=== PATIENT | female | born 2005 | race African-American/Black ===

== ENCOUNTER 2024-11-08 10:50 | Outpatient (RCR) | payer OTHER, SELFPAY ==
[2024-11-08] MEDS: RHO(D) IMMUNE GLOBULIN 300 MCG/2 ML SYRINGE IM (12:20)
== END 2025-02-06 23:59 | disposition home or self-care (01) ==
LOC: ANHOBOP 10:50
DX: Z29.13 Encounter for prophylactic Rho(D) immune globulin (principal); O36.0190 Maternal care for anti-D [Rh] antibodies, unspecified trimester, not applicable or unspecified; Z3A.00 Weeks of gestation of pregnancy not specified
CPT/HCPCS: 36415; 85461; 86850; 86900; 86901; 90384; 96372; J2790